=== PATIENT | female | born 1985 | race Caucasian/White ===

== ENCOUNTER → 2020-04-26 | Outpatient (CLI) | payer BC | END | disposition home or self-care (01) | LOC: LABWHC1 12:38 | PROVIDERS: ATTEND Family Medicine | DX: Z20.828 Contact with and (suspected) exposure to other viral communicable diseases (principal) | CPT/HCPCS: U0003; C9803 ==

== ENCOUNTER → 2023-09-23 | Outpatient (CLI) | payer BC | LOC: CPPFTMAIN 07:19 | PROVIDERS: ATTEND Family Medicine | DX: J45.20 Mild intermittent asthma, uncomplicated (principal); Z88.2 Allergy status to sulfonamides; Z88.1 Allergy status to other antibiotic agents; Z88.8 Allergy status to other drugs, medicaments and biological substances; Z79.899 Other long term (current) drug therapy | CPT/HCPCS: 94060; 94726; 94729 ==

== ENCOUNTER → 2024-01-21 | Outpatient (CLI) | payer BC ==
[2024-01-21 15:22] LABS: Testosterone 54.1 ng/dL (9.01-47.94)
[2024-01-21 15:50] LABS: Follicle Stimulating Hormone 3.7 mIU/mL
== END | disposition home or self-care (01) ==
LOC: LABWHC1 08:16
PROVIDERS: ATTEND Obstetrics & Gynecology
DX: N95.1 Menopausal and female climacteric states (principal)
CPT/HCPCS: 36415; 82670; 83001; 84144; 84403

== ENCOUNTER → 2024-01-26 | Outpatient (CLI) | payer BC ==
--- NOTE | 2024-02-13 15:54 | CONS ---
CONSULTATION 38-year-old lady has been evaluated in [facility] for possible obstructive sleep apnea-hypopnea syndrome. HISTORY OF PRESENT ILLNESS: Sleep-wake evaluation. The patient's usual sleep schedule from 10 p.m. to 6 a.m. on weekdays and from 10 p.m. to 9 a.m. on weekends. Sometimes the patient has difficulties to fall asleep, although no TV in bedroom. Positive history of snoring. The patient wakes up from sleep 2 times with nocturia, sweating, and grinding teeth. During the day, the patient usually does not take naps, [place] Sleepiness Scale is 5. PAST MEDICAL HISTORY: Hyperlipidemia, asthma, migraines, fibromyalgia. PAST SURGICAL HISTORY: C-sections x2, uterus ablation. SOCIAL HISTORY: No smoking. Alcohol consumption occasional. MEDICATIONS: 1. Pravastatin 5 mg x1 during the day. 2. Albuterol. 3. Rosuvastatin 5 mg once a day. FAMILY HISTORY: Positive for snoring and diabetes mellitus. REVIEW OF SYSTEMS: Snoring, awakenings from sleep, migraines. No seizures. PHYSICAL EXAMINATION: GENERAL: The patient is in no distress. VITAL SIGNS: BP 153/85, HR 73, RR 16, weight 182.2, BMI 33.2, temperature 98.4. HEENT: PERRLA, EOMI, evaluation of oropharynx showed extremely low position of soft palate, Mallampati 4. NECK: 15.5 inches in circumference. Supple, no JVD. Thyroid is not palpable. LUNGS: Clear to percussion and to auscultation. Good air exchange. No wheezing or rhonchi. HEART: S1, S2 regular. No murmurs, gallops, or rubs. ABDOMEN: Soft and nontender. Bowel sounds are present. No organomegaly appreciated. EXTREMITIES: No edema, clubbing, or cyanosis. AIR TUBE RELEASER: Awake, alert, and oriented X3. Cranial nerves 2 to 7 intact. There is no fasciculation or atrophy. noted. No focal deficits observed. IMPRESSION: 1. Snoring, awakenings from sleep, small oropharyngeal air space with extremely low position of soft palate, Mallampati 4, obstructive sleep apnea-hypopnea syndrome. 2. Obesity, BMI 33.2. 3. Hyperlipidemia. 4. Migraine. 5. Asthma. 6. Fibromyalgia. 7. History of temporomandibular joint problems. 8. Status post uterus ablation. PLAN: 1. Polysomnography for evaluation of the patient breathing during sleep. 2. Sleep hygiene regular time in bed for at least 8 hours. 3. Precautions related to driving. No driving if feeling sleepiness. 4. Losing weight program. 5. Following plan after reading sleep study. Thank you very much for referring this patient for consultation. ZACKERY / IJN: [id number] / HERIBERTO
== END ==
LOC: 3 N SLEEP 14:15
PROVIDERS: ATTEND Internal Medicine
DX: G47.33 Obstructive sleep apnea (adult) (pediatric)
CPT/HCPCS: 99211

== ENCOUNTER → 2024-03-08 | Outpatient (CLI) | payer BC ==
--- NOTE | 2024-03-10 11:21 | P.PCN ---
Description of Procedure: CLINICAL: A home sleep apnea test has been done for confirmation of possible obstructive sleep apnea-hypopnea syndrome. DESCRIPTION OF PROCEDURE: RESULTS: Recording time was 9 hours 34 minutes. Evaluation time was 9 hours 22 minutes. Evaluation time is sufficient for making conclusion about results of the test. Raw data of sleep recording has been reviewed and is adequate. Respiratory channel showed 1 apneas and 51 hypopneas. Apnea-hypopnea index was 5.5 per hour. Pulse rate in the range between minimum 54, maximum 101, average 64 by computer calculation. Lowest desaturation was 79%. IMPRESSION: 1. Obstructive Sleep Apnea Hypopnea Syndrome. 2. Insomnia. Please see other impressions from consultation. PLAN: 1. The patient will be started on auto-PAP treatment for correction of respiratory abnormallities during sleep. 2. I will see patient for follow up visit to discuss results of the test, evaluate clinical response on treatment with PAP therapy and make any necessary adjustments related to mask fitting, pressure, and humidification. 3. Watching and losing weight. 4. Sleep hygiene with regular time in bed for at least 8 hours. 5. No driving if feeling any sleepiness. Thank you very much for allowing me to participate in the management of your patient. Sincerely, Josemanuel Enriquez MD, PhD, FAASM Diplomat of [place] [employer] Sleep Medicine Board of [place] [employer] Truck Loader of [facility] [place]
== END ==
LOC: 3 N SLEEP 11:13
PROVIDERS: ATTEND Internal Medicine

== ENCOUNTER → 2024-07-01 | Outpatient (CLI) | payer BC ==
[2024-07-01 17:11] VITALS: BP 127/88; PULSE 91; RESP 18; TEMP 98.1
--- NOTE | 2024-07-01 17:39 | P.PROGSL ---
Subjective DATE: 07/01/2024 FOLLOW UP VISIT. Patient with obstructive sleep apnea hypopnea syndrome return to sleep center for follow-up visit. Recently patient had sleep study which documented obstructive sleep apnea hypopnea syndrome. Patient was initiated on PAP therapy and today is first visit after treatment was started. Patient was able to use PAP equipment every night for the whole night during the first months. The patient does not have significant problems with the mask, PAP pressure and humidification. [place] sleepiness scale is 1, which is perfect. Patient sleeps better after she was started on treatment with CPAP. I checked information from PAP unit. PAP unit pressure 5-13, average 10.4 cm H2O. Usage is 70% for more then 4 hours, average 4 hours per night. Leak is very minimal 0.4 l/m. Apnea Hypopnea Index is 0.2, which is perfect. During physical exam: GENERAL: A pleasant patient without any distress. VITAL SIGNS: Please see below, weight 177.0 pounds. HEENT: PERRLA, EOMI.low position of soft palate, Mallapati 4 . NECK: Supple. No JVD. LUNGS: Clear to percussion and to auscultation. Good air exchange. No wheezing or rhonchi. HEART: S1, S2 regular. ABDOMEN: Soft and nontender.[] EXTREMITIES: No clubbing or cyanosis. RESIDENT CARE ASSISTANT: Awake, alert, and oriented x3. No focal deficit. Impressions: 1. Obstructive sleep apnea-hypopnea syndrome. Patient demonstrated good compliance with treatment, benefiting from treatment. 2. Mild obesity, patient lost 5 pounds since previous visit. 3. Hyperlipidemia. 4. Asthma. 5. Migraine. 6. Fibromyalgia. 7. Status post uterus ablation. 8. History of temporomandibular joint problems. Plan: 1. Continue using PAP equipment every night for the whole night. 2. To change air filter at least 1-2 times per month. 3. PAP unit should stay lower then position of the head. 4. Advised patient to remove all remaining water from humidifier canister daily and make it dry after each usage. Refill canister with fresh distilled water before each usage. 5. Sleep hygiene with regular time in bed for at least 8 hours. 6. Precautions related to driving. No driving if feel any sleepiness. 7. I will maintain prescription for PAP supplies including mask, tube, filters. 8. Follow up visit in 8 months or earlier if patient has any problems. 9. Watching and losing weight. Thank you very much for allowing me to participate in the management of your patient. Josemanuel Enriquez MD, PhD, FAASM. Diplomat of [place] [employer], Sleep Medicine Board by [place] [employer] Restaurant Shift Leader of [facility] Objective - Vital Signs Vital Signs: Vital Signs Temp 98.1 F 07/01/24 17:10 Pulse 91 07/01/24 17:10 Resp 18 07/01/24 17:10 BP 127/88 07/01/24 17:10 Pulse Ox 98 07/01/24 17:10 FiO2 Intake & Output 06/30/24 07/01/24 07/01/24 18:59 06:59 18:59 Weight 80.286 kg Home Medications: Home Medications Medication Instructions Recorded Confirmed Type Albuterol Inhaler [Ventolin Hfa 2 puff INHALATION Q4HR PRN 10/25/13 07/11/15 History Inhaler] Fpjoepyqmc-GXE-Ooswtzu-Codeine 1 cap PO DAILY PRN 10/25/13 07/11/15 History [Fiorinal w/Cod [id number]] methocarbamoL [Robaxin-750] 750 mg PO TID 10/25/13 07/11/15 History Albuterol Nebulized [Ventolin 2.5 mg INHALATION Q4H PRN 03/02/14 07/11/15 History Nebulized] traMADol HCL/ACETAMINOPHEN 2 each PO Q4HR PRN 03/02/14 07/11/15 History [Ultracet 37.5-325] Amitriptyline HCl 50 mg PO HS 07/11/15 07/11/15 History Gabapentin [Neurontin] 400 mg PO TID 07/11/15 07/11/15 History Ibuprofen [Motrin] 800 mg PO DIRECTED PRN 07/11/15 07/11/15 History Naproxen 500 mg PO Q12HR #30 tab 07/11/15 Rx Topiramate [Topamax] 50 mg PO BID 07/11/15 07/11/15 History traZODone HCL [Desyrel] 25 mg PO HS 07/11/15 07/11/15 History
== END ==
LOC: 3 N SLEEP 16:50
PROVIDERS: ATTEND Internal Medicine
DX: G47.33 Obstructive sleep apnea (adult) (pediatric) (principal); E66.9 Obesity, unspecified; E78.5 Hyperlipidemia, unspecified; J45.909 Unspecified asthma, uncomplicated; G43.909 Migraine, unspecified, not intractable, without status migrainosus; M79.7 Fibromyalgia; N99.85 Post endometrial ablation syndrome; Z87.39 Personal history of other diseases of the musculoskeletal system and connective tissue; Z99.89 Dependence on other enabling machines and devices
CPT/HCPCS: 99212

== ENCOUNTER → 2024-10-01 | Outpatient (CLI) | payer BC ==
--- NOTE | 2024-10-01 08:32 | MM ---
Reason for Exam: Screening (asymptomatic). Patient History: Menarche at age 12. First Full-Term at age 24. Perimenopausal. Risk Values: Emily 5 year model risk: 0.6%. NCI Lifetime model risk: 11.1%. Tissue Density: There are scattered areas of fibroglandular density. Findings: Analyzed By CAD. Global asymmetry subareolar left breast with no persisting abnormality and 3-D images. No suspicious microcalcification, significant masses, or other discrete abnormality is seen. Overall Assessment: Benign, BI-RAD 2 Management: Screening Mammogram of both breasts in 1 year. Patient should continue monthly self-breast exams. A clinical breast exam by your physician is recommended on an annual basis. This exam should not preclude additional follow-up of suspicious palpable abnormalities. Note on Emily scores and lifetime risk: 1. A Emily score greater than 3% is considered moderate risk. If this is the case, consider specialist referral to assess eligibility for a risk reducing agent. 2. If overall lifetime risk for the development of breast cancer is 20% or higher, the patient may qualify for future screening with alternating mammogram and breast MRI. [facility], , 10/01/2024 8:29 AM. Electronically signed and approved by: Abbie Zavala M.D. Radiologist
== END | disposition home or self-care (01) ==
LOC: RADMAMWWP 08:02
PROVIDERS: ATTEND Obstetrics & Gynecology
DX: Z12.31 Encounter for screening mammogram for malignant neoplasm of breast (principal); R92.323 Mammographic fibroglandular density, bilateral breasts
CPT/HCPCS: 77063; 77067